=== PATIENT | male | born 2000 | race Hispanic/Latino ===

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

== ENCOUNTER 2021-06-04 18:48 | Emergency (ER) | payer OTHER, SELFPAY ==
--- NOTE | 2021-06-04 21:25 | ER ---
Nurse's Notes [facility] Name: Ruddy Ozuna Jr Age: 20 yrs Sex: Male : 2000 Arrival Date: 06/04/2021 Time: 19:57 Bed Waiting Private MD: Diagnosis: ED Course: 06/04 19:57 Patient arrived in ED. wm 20:10 Me[facility] Louis [facility]-C [facility]. kb 20:10 Jamal Boudreaux MD is Attending Physician. kb 21:24 Patient's name was called from ER [facility]. No response. Unable to locate patient. Will bb disposition as left without being seen by a provider. Administered Medications: No medications were administered Outcome: 21:24 Patient left the ED. bb Signatures: Mei Louis FNP-C FNP-Ckb Ballard, Brenda RN RN bb Radha Curtis wm
== END 2021-06-04 21:24 | disposition left against medical advice (07) ==
LOC: ER 18:48
DX: Z02.9 Encounter for administrative examinations, unspecified (principal)